=== PATIENT | female | born 1940 | race Caucasian/White ===

== ENCOUNTER 2017-07-28 10:04 | Emergency (ER) | payer OTHER ==
[~2017-07-28] VITALS: Ht 157.5 cm; Wt 74.8 kg
[~2017-07-28 10:04] MED LIST: AMLODIPINE BES2.5 MG; ASPIR-LOW81 MG; CATAFLAM50 MG PO; DICLOFENAC POTA50 MG; DICLOFENAC SODI50 MG PO; GABAPENTIN300 MG; MEDROLPACK PO; NORFLEX100MG PO; OMEPRAZOLE20 MG; ORPH100T PO; PENTOXIFYLLINE400 MG; SIMVASTATIN40 MG; TRAMADOL HCL50 MG; ZOLOFT25 MG
== END 2017-07-28 14:31 | disposition home or self-care (01) ==
LOC: ER 10:04
DX: K29.70 Gastritis, unspecified, without bleeding (principal); K21.9 Gastro-esophageal reflux disease without esophagitis

== ENCOUNTER 2017-09-07 09:05 | Emergency (ER) | payer OTHER ==
[~2017-09-07] VITALS: Ht 154.9 cm; Wt 75.7 kg
[2017-09-07] MEDS ORDERED: LOSARTAN POTASS25 MG (09:17)
[2017-09-07] MEDS ORDERED: MEDROLPACK PO (15:22)
[2017-09-07] MEDS ORDERED: DICLOFENAC POTA50 MG PO (15:22)
== END 2017-09-07 16:22 | disposition home or self-care (01) ==
LOC: ER 09:05
DX: R10.32 Left lower quadrant pain (principal); M54.9 Dorsalgia, unspecified

== ENCOUNTER → 2017-09-12 | Outpatient (CLI) | payer OTHER ==
[~2017-09-12] MED LIST changes: +DICLOFENAC POTA50 MG PO; +LOSARTAN POTASS25 MG
== END | disposition home or self-care (01) ==
LOC: RAD 08:03
DX: M75.31 Calcific tendinitis of right shoulder (principal); M54.5 Low back pain

== ENCOUNTER → 2017-09-12 | Outpatient (CLI) | payer OTHER | END | disposition home or self-care (01) | LOC: MRI 07:47 | DX: M54.5 Low back pain (principal); K86.2 Cyst of pancreas | CPT/HCPCS: 72148; 74181 ==

== ENCOUNTER → 2017-09-12 | Outpatient (CLI) | payer OTHER | END | disposition home or self-care (01) | LOC: MAMO-SONO 07:58 | DX: Z12.31 Encounter for screening mammogram for malignant neoplasm of breast (principal); Z87.898 Personal history of other specified conditions ==

== ENCOUNTER → 2017-11-09 | Outpatient (CLI) | payer OTHER | END | disposition home or self-care (01) | LOC: NUCLEAR 10:00 | DX: I20.1 Angina pectoris with documented spasm (principal) | CPT/HCPCS: 78452; 93017; A9500 ==

== ENCOUNTER 2017-11-30 08:07 | Outpatient (CLI) | payer OTHER | END 2017-11-30 17:00 | disposition home or self-care (01) | LOC: MRI 08:07 | DX: C54.1 Malignant neoplasm of endometrium (principal) | CPT/HCPCS: 72197; A9579; 72198 ==

== ENCOUNTER 2017-12-04 07:12 | Outpatient (CLI) | payer OTHER | END 2017-12-04 07:21 | disposition home or self-care (01) | LOC: TOM 07:12 | DX: C54.1 Malignant neoplasm of endometrium (principal); R10.84 Generalized abdominal pain; I10 Essential (primary) hypertension; I27.89 Other specified pulmonary heart diseases | CPT/HCPCS: 71046; 74019; 74160; Q9965 ==

== ENCOUNTER 2018-01-18 09:55 | Emergency (ER) | payer OTHER ==
[~2018-01-18] VITALS: Ht 157.5 cm; Wt 73.9 kg
== END 2018-01-18 12:07 | disposition home or self-care (01) ==
LOC: ER 09:55
DX: M25.511 Pain in right shoulder (principal)

== ENCOUNTER 2019-03-13 08:29 | Outpatient (CLI) | payer OTHER | END 2019-03-13 08:36 | disposition home or self-care (01) | LOC: RAD 08:29 | DX: M45.6 Ankylosing spondylitis lumbar region (principal) ==

== ENCOUNTER 2020-01-01 14:57 | Outpatient (CLI) | payer OTHER | END 2020-01-01 15:01 | disposition home or self-care (01) | LOC: RAD 14:57 | PROVIDERS: ATTEND Internal Medicine Cardiovascular Disease | DX: M12.821 Other specific arthropathies, not elsewhere classified, right elbow (principal) ==

== ENCOUNTER 2020-02-18 07:12 | Outpatient (CLI) | payer OTHER | END 2020-02-18 07:15 | disposition home or self-care (01) | LOC: SONOGRAMA 07:12 → MAMO-SONO 08:15 | PROVIDERS: ATTEND Internal Medicine Cardiovascular Disease | DX: M12.821 Other specific arthropathies, not elsewhere classified, right elbow (principal) ==

== ENCOUNTER 2020-06-01 09:17 | Emergency (ER) | payer OTHER ==
[~2020-06-01] VITALS: Ht 157.5 cm; Wt 72.6 kg
[2020-06-01] MEDS ORDERED: HYDROCHLOROTHIA25 MG PO (09:27)
[2020-06-01] MEDS ORDERED: GABAPENTIN300 M2 PO (09:27)
[2020-06-01] MEDS ORDERED: MECLIZINE HCL25 MG PO (09:27)
[2020-06-01] MEDS ORDERED: MONTELUKAST SOD10 MG PO (09:28)
[2020-06-01] MEDS ORDERED: NABUMETONE750 MG PO (09:28)
[2020-06-01] MEDS ORDERED: PROAIR HFA8.5 GM IH (09:28)
[2020-06-01] MEDS ORDERED: SERTRALINE HCL25 MG PO (09:28)
[2020-06-01] MEDS ORDERED: AFRIN15 M1 NASAL (14:19)
[2020-06-01] MEDS ORDERED: FLONASE ALLERG9.9 ML NASAL (14:19)
== END 2020-06-01 14:59 | disposition home or self-care (01) ==
LOC: ER 09:17
DX: R04.0 Epistaxis (principal); G44.89 Other headache syndrome; Z03.818 Encounter for observation for suspected exposure to other biological agents ruled out

== ENCOUNTER → 2020-06-14 | Outpatient (CLI) | payer OTHER ==
[~2020-06-14] MED LIST changes: +AFRIN15 M1 NASAL; +FLONASE ALLERG9.9 ML NASAL; +GABAPENTIN300 M2 PO; +HYDROCHLOROTHIA25 MG PO; +MECLIZINE HCL25 MG PO; +MONTELUKAST SOD10 MG PO; +NABUMETONE750 MG PO; +PROAIR HFA8.5 GM IH; +SERTRALINE HCL25 MG PO
== END | disposition home or self-care (01) ==
LOC: OFIC 805 08:45
PROVIDERS: ATTEND Otolaryngology
DX: G44.89 Other headache syndrome (principal); R04.0 Epistaxis

== ENCOUNTER 2020-07-15 09:09 | Outpatient (CLI) | payer OTHER | END 2020-07-15 11:00 | disposition home or self-care (01) | LOC: OFIC 805 09:09 | PROVIDERS: ATTEND Otolaryngology | DX: R04.0 Epistaxis (principal); G44.89 Other headache syndrome ==

== ENCOUNTER 2021-06-08 15:12 | Emergency (ER) | payer OTHER ==
[~2021-06-08] VITALS: Ht 152.4 cm; Wt 81.6 kg
== END 2021-06-09 00:08 | disposition home or self-care (01) ==
LOC: ER 15:12
DX: R53.1 Weakness (principal); T40.715A Adverse effect of cannabis, initial encounter

== ENCOUNTER 2022-11-14 10:27 | Outpatient (CLI) | payer OTHER | END 2022-11-14 10:36 | disposition home or self-care (01) | LOC: RAD 10:27 | PROVIDERS: ATTEND Internal Medicine Cardiovascular Disease | DX: M12.9 Arthropathy, unspecified (principal); M46.47 Discitis, unspecified, lumbosacral region ==

== ENCOUNTER 2023-06-23 12:12 | Emergency (ER) | payer OTHER ==
[~2023-06-23] VITALS: Ht 157.5 cm; Wt 74.2 kg
[2023-06-23] MEDS ORDERED: SINGULAIR10 MG (12:28)
[2023-06-23] MEDS ORDERED: OMEPRAZOLE20 MG (12:28)
[2023-06-23 14:22] LABS: HEMATOCRIT 41.6 % (36.0-45.00); HEMOGLOBIN 13.7 g/dL (12.0-15.00); MEAN CELL VOLUME 91.5 fL (80.00-100.00); MEAN CORPUSCULAR HEMOGLOBIN 30.2 pg (27.00-32.0); PLATELET COUNT 269 K/uL (150-450); RED BLOOD COUNT 4.55 M/uL (4.00-6.00); RED CELL DISTRIBUTION WIDTH 13.4 % (11.5-14.5)
== END 2023-06-23 16:51 ==
LOC: ER 12:12
PROVIDERS: General Practice
DX: B34.9 Viral infection, unspecified (principal); R42 Dizziness and giddiness; H93.19 Tinnitus, unspecified ear; J45.909 Unspecified asthma, uncomplicated; E78.49 Other hyperlipidemia; G61.0 Guillain-Barre syndrome; Z20.822 Contact with and (suspected) exposure to COVID-19

== ENCOUNTER 2023-08-22 10:27 | Outpatient (CLI) | payer OTHER ==
[~2023-08-22 10:27] MED LIST changes: +SINGULAIR10 MG
== END 2023-08-22 10:34 | disposition home or self-care (01) ==
LOC: RAD 10:27
PROVIDERS: ATTEND Internal Medicine Cardiovascular Disease
DX: M12.9 Arthropathy, unspecified (principal)

== ENCOUNTER 2024-02-22 18:32 | Emergency (ER) | payer OTHER ==
[~2024-02-22] VITALS: Ht 165.1 cm; Wt 88.5 kg
[2024-02-22] MEDS ORDERED: KETOROLAC TROMETHAMINE 30 MG VIAL IM STA (19:42)
[2024-02-22] MEDS ORDERED: ORPHENADRINE CITRATE 100 MG TABLET PO STA (19:42)
[2024-02-22] MEDS ORDERED: KETOROLAC TROMETHAMINE 30 MG VIAL ONE (20:13)
== END 2024-02-22 20:24 | disposition home or self-care (01) ==
LOC: ER 18:33
DX: M54.9 Dorsalgia, unspecified (principal)
CPT/HCPCS: 96372; 99282; J1885

== ENCOUNTER 2024-06-23 11:05 | Emergency (ER) | payer OTHER ==
[~2024-06-23] VITALS: Ht 157.5 cm; Wt 72.6 kg
[2024-06-23] MEDS ORDERED: BUDESONIDE 0.5 MG/2 ML AMPUL.NEB IH STA (13:22)
[2024-06-23] MEDS ORDERED: ALBUTEROL SULFATE 3 ML/2.5 MG AMPUL.NEB IH SCH (13:30)
[2024-06-23 13:35] LABS: HEMATOCRIT 42.2 % (36.0-45.00); HEMOGLOBIN 14.1 g/dL (12.0-15.00); MEAN CELL VOLUME 91.7 fL (80.00-100.00); MEAN CORPUSCULAR HEMOGLOBIN 30.7 pg (27.00-32.0); MEAN CORPUSCULAR HGB CONC 33.4 g/dl (32.0-36.0); PLATELET COUNT 273 K/uL (150-450); RED CELL DISTRIBUTION WIDTH 13.6 % (11.5-14.5)
[2024-06-23] MEDS ORDERED: OSEL75CA PO (20:21)
== END 2024-06-23 20:43 | disposition home or self-care (01) ==
LOC: ER 11:07
PROVIDERS: Emergency Medicine
DX: J10.1 Influenza due to other identified influenza virus with other respiratory manifestations (principal); R05.9 Cough, unspecified; Z20.822 Contact with and (suspected) exposure to COVID-19

== ENCOUNTER 2024-11-11 08:28 | Outpatient (CLI) | payer OTHER ==
[~2024-11-11 08:28] MED LIST changes: +OSEL75CA PO
== END 2024-11-11 08:29 | disposition home or self-care (01) ==
LOC: NUCLEAR 08:28
PROVIDERS: ATTEND Psychiatry & Neurology Clinical Neurophysiology
DX: R55 Syncope and collapse (principal)